=== PATIENT | female | born 1925 | race Caucasian/White ===

== ENCOUNTER 2017-03-27 18:17 | Emergency (ER) | payer OTHER ==
[~2017-03-27] VITALS: Ht 152.4 cm; Wt 53.8 kg
[~2017-03-27 18:17] MED LIST: CITRATE OF MAG296 ML PO; DOCUSATE CALCI240 MG PO; MIRALAX17 GM PO; SENNA8.6 M1 PO; ZOFRAN ODT4 MG PO
[2017-03-27 20:56] LABS: HEMATOCRIT 40.1 % (36.0-46.0); MCH 29.1 PG (29.0-34.0); MCHC 33.7 G/DL (30.0-36.0); MCV 86.4 FL (83-99); MEAN PLAT.VOLUME 10.5 uM^3 (9.5-12.4); PLATELET COUNT 231 K/uL (156-360); RBC DIS.WIDTH-CV 12.9 % (11.8-14.6); RBC DIS.WIDTH-SD 40.8 % (39-53); RED BLOOD COUNT 4.64 M/uL (3.80-5.20); WHITE BLOOD COUNT 5.3 K/uL (4.1-10.2)
[2017-03-27 21:07] LABS: CHLORIDE 96 mEq/L (99-109); POTASSIUM 4.5 mEq/L (3.7-5.4); SODIUM 136 mEq/L (136-147)
[2017-03-27 21:09] LABS: GLUCOSE 89 mg/dL (70-99)
[2017-03-27 21:10] LABS: ANION GAP 11 MEQ/L (2-14)
[2017-03-27 21:12] LABS: GFR ESTIMATE (CALCULATED) > 59 mL/min/
[2017-03-27 21:13] LABS: UREA NITROGEN (BUN) 15 mg/dL (9-23)
[2017-03-27 21:39] VITALS: BP 141/80
== END 2017-03-27 21:39 | disposition home or self-care (01) ==
LOC: EME 18:17
PROVIDERS: Physician Assistant
DX: I73.9 Peripheral vascular disease, unspecified (principal); M79.89 Other specified soft tissue disorders; I10 Essential (primary) hypertension; Z85.828 Personal history of other malignant neoplasm of skin
CPT/HCPCS: 71020; 80048; 83880; 85027; 93971; 99281; 99284